=== PATIENT | male | born 1965 | race Caucasian/White ===

== ENCOUNTER 2018-10-13 19:55 | Emergency (ER) | payer MEDICAID, OTHER ==
--- NOTE | 2018-10-13 20:57 | EDPHY ---
H & P Time Seen by Provider: 10/13/18 20:53 HPI/ROS: CHIEF COMPLAINT: right hand pain HISTORY OF PRESENT ILLNESS: The patient is a 53-year-old male who presents emergency department with injury at the base of his right hand. 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 He then has swelling and pain. No other injury. No numbness or tingling. No previous fracture. REVIEW OF SYSTEMS: Negative Past medical history: Noncontributory Smoking Status: Never smoked Physical Exam: General Appearance: Alert and no distress. Head: Pupils equal. Normal. Respiratory: No respiratory distress. Cardiac: regular rate and rhythm. Extremities: The patient has mild swelling at the base of his 5th metacarpal. Mild tenderness to palpation. No snuffbox tenderness. No wrist tenderness. Neurovascular intact distally Skin: No rashes or lesions. Neuro: Alert. Normal mood and affect. Constitutional: Initial Vital Signs Temperature (C) 36.4 C 10/13/18 19:57 Heart Rate 55 L 10/13/18 19:57 Respiratory Rate 18 10/13/18 19:57 Blood Pressure 147/85 H 10/13/18 19:57 O2 Sat (%) 96 10/13/18 19:57 O2 Delivery Mode Room Air Allergies/Adverse Reactions: No Known Allergies Allergy (Verified 10/13/18 19:59) Home Medications: Medication Instructions Recorded lamoTRIgine [Lamictal Xr] 200 mg PO 06/27/11 Statin 10/13/18 Medical Decision Making - Diagnostics Imaging Results: Imaging Impressions Hand X-Ray 10/13/18 20:02 Impression: Acute minimally angulated base of fifth metacarpal fracture. ED Course/Re-evaluation: In the emergency department I discussed possible etiologies. I answered all his questions X-ray right hand: Please refer the dictated report. There is a fracture at the base of the 5th metacarpal. Patient had a the an ulnar gutter splint placed with Ortho Glass. The patient was neurovascular intact post splint placement. Patient was given warnings prior to leaving. He will follow up with Orthopedics. Differential Diagnosis: My differential includes but not limited to fracture, dislocation, contusion, sprain Departure - Departure Disposition: Home, Routine, Self-Care Clinical Impression: Hand fracture, right Qualifiers: Encounter type: initial encounter Fracture type: closed Qualified Code(s): S62.91XA - Unspecified fracture of right wrist and hand, initial encounter for closed fracture Condition: Good Instructions: Hand Fracture (ED) Additional Instructions: Keep your splint in place. This should not be removed. You need to call Orthopedics tomorrow morning to make a follow-up appointment. Referrals: Yolanda Luciano MD [Primary Care Provider] - As per Instructions Vesta Arriaga MD [Medical Doctor] - 5-7 days, call for appt.
[2018-10-13 21:18] VITALS: BP 122/76
== END 2018-10-13 21:18 | disposition home or self-care (01) ==
PROC: 2W3EX1Z Immobilization of Right Hand using Splint (ICD-10-PCS; principal; 2018-10-13)
DX: S62.316A Displaced fracture of base of fifth metacarpal bone, right hand, initial encounter for closed fracture (principal); W22.8XXA Striking against or struck by other objects, initial encounter; Y92.89 Other specified places as the place of occurrence of the external cause; Y99.0 Civilian activity done for income or pay; Y93.89 Activity, other specified

== ENCOUNTER → 2018-10-26 | Outpatient (CLI) | payer MEDICAID | LOC: FIMAGING 15:49 | PROVIDERS: ATTEND Physician Assistant | DX: S62.316D Displaced fracture of base of fifth metacarpal bone, right hand, subsequent encounter for fracture with routine healing (principal) ==